=== PATIENT | male | born 1945 | race Caucasian/White ===

== ENCOUNTER 2018-08-18 19:49 | Emergency (ER) | payer OTHER ==
[~2018-08-18] VITALS: Ht 175.3 cm; Wt 87.3 kg
[2018-08-18 19:51] VITALS: BP 141/83; PULSE 56; RESP 16; Ht 175.3 cm; Wt 87.3 kg
[2018-08-18] MEDS ORDERED: IBUP-1542 PO (23:14)
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
== END 2018-08-18 23:25 | disposition home or self-care (01) ==
LOC: EDBD 19:49 → FTE 19:49
DX: S13.4XXA Sprain of ligaments of cervical spine, initial encounter (principal); R51 Headache; V53.6XXA Passenger in pick-up truck or van injured in collision with car, pick-up truck or van in traffic accident, initial encounter
CPT/HCPCS: 70450; 72125; Z7502